=== PATIENT | male | born 1950 | race Caucasian/White ===

== ENCOUNTER 2017-09-01 15:47 | Emergency (ER) | payer OTHER ==
[2017-09-01] MEDS: NAPROXEN 500 MG TABLET PO (17:32)
[2017-09-01] MEDS: HYDROcodone/APAP 5/325MG 1 TAB TABLET PO (17:32)
== END 2017-09-01 18:40 | disposition home or self-care (01) ==
LOC: ER 18:40
DX: M25.562 Pain in left knee (principal); Z79.1 Long term (current) use of non-steroidal anti-inflammatories (NSAID); Z79.891 Long term (current) use of opiate analgesic
CPT/HCPCS: 73564; 99284

== ENCOUNTER → 2018-07-20 | Outpatient (CLI) | payer SELFPAY ==
[2017-09-01 18:37] VITALS: BP 157/86
[~2018-07-20] MED LIST: ATOR40TA59 PO; DICL50TA4 PO; GEMF600T8 PO; GUAN1TAB PO; HYDR-2765 PO; HYDR-3164 PO; MELO15TA23 PO; METO-269 PO; MULT1TAB52 PO; NAPR250T6 PO
--- NOTE | 2018-07-20 09:38 | RAD ---
KUB, 07/20/2018: HISTORY: Kidney stone The abdominal gas pattern is unremarkable. There is no evidence organomegaly. There are at least 2 radiopacities overlying the left kidney suggesting intrarenal calculi. The largest of these is projected over the region of the renal pelvis and measures 1.4 cm. This corresponds in size and location to a calculus seen on the 02/05/2016 CT study. No definite radiopacity seen along the course of either ureter. Moderate multilevel hypertrophic degenerative changes are present in the spine. IMPRESSION: 1. Left intrarenal calculi. 2. No acute abdominal abnormality is detected. Electronically signed by: Justin Thornton MD (07/20/2018 9:35 AM) [facility]
== END | disposition home or self-care (01) ==
LOC: RAD 08:46
PROVIDERS: ATTEND Urology
DX: N20.0 Calculus of kidney (principal); M89.38 Hypertrophy of bone, other site; M47.819 Spondylosis without myelopathy or radiculopathy, site unspecified
CPT/HCPCS: 74018

== ENCOUNTER 2020-03-13 05:49 | Inpatient (IN) | payer MEDICAID ==
[~2020-03-13] VITALS: Ht 182.9 cm; Wt 113.6 kg
[~2020-03-13 05:49] MED LIST changes: +GEMF600T20 PO; -GEMF600T8 PO; +MORPHINE SULFATE 4 MG/ML VIAL. IV PRN; +MULT-445 PO; -MULT1TAB52 PO; +NAPR-699 PO; -NAPR250T6 PO
[2020-03-13 06:29] LABS: BASO # 0.1 x10^3/uL (0.0-0.2); BASO % 1 % (0-3); EOS # 0.1 x10^3/uL (0.0-0.7); EOS % 2 % (0-3); HEMATOCRIT 47.1 % (39.0-53.0); HEMOGLOBIN 15.8 g/dL (13.0-17.5); LYMPH # 2.3 x10^3/uL (1.0-4.8); LYMPH % 35 % (24-48); MEAN CORPUSCULAR HEMOGLOBIN 30 pg (25-35); MEAN CORPUSCULAR HGB CONC 33 g/dL (31-37); MEAN CORPUSCULAR VOLUME 88 fL (79-100); MONO # 0.5 x10^3/uL (0.0-1.1); MONO % 7 % (0-9); NEUT # 3.6 x10^3/uL (1.8-7.7); NEUT % 55 % (31-73); PLATELET COUNT 309 x10^3/uL (140-400); RED BLOOD COUNT 5.35 x10^6/uL (4.30-5.70); WHITE BLOOD COUNT 6.5 x10^3/uL (4.0-11.0)
[2020-03-13 06:39] LABS: ALBUMIN 3.8 g/dL (3.4-5.0); ALBUMIN/GLOBULIN RATIO 1.1 (1.0-1.7); CALCIUM 8.9 mg/dL (8.5-10.1); CREATININE 1.2 mg/dL (0.7-1.3); GFR 60.4; MAGNESIUM 2.2 mg/dL (1.8-2.4); POTASSIUM 3.7 mmol/L (3.5-5.1); TOTAL BILIRUBIN 0.7 mg/dL (0.2-1.0); TOTAL PROTEIN 7.4 g/dL (6.4-8.2)
--- NOTE | 2020-03-13 06:58 | RAD ---
EXAM: AP View of the chest DATE: 03/13/2020 6:29 AM INDICATION: Reason: cp / Spl. Instructions: / History: COMPARISON: No Prior FINDINGS: The heart is not enlarged. Mediastinal and hilar contours are normal. No focal parenchymal airspace opacity. No pleural effusion or pneumothorax. Shoulder joint degenerative changes are seen IMPRESSION: 1. No radiographic evidence for acute cardiopulmonary process. Electronically signed by: Bernabe Washington MD (03/13/2020 6:47 AM) [facility]
--- NOTE | 2020-03-13 07:02 | PHYS DOC ---
Past Medical History Past Medical History: Hypertension Past Surgical History: Appendectomy, Tonsillectomy, Other Additional Past Surgical Histo: back, knee, shoulder Smoking Status: Current Every Day Smoker Alcohol Use: Occasionally Drug Use: None General Adult EDM: Chief Complaint: CHEST PAIN HPI: HPI: 69-year-old male past medical history significant for hypertension, hyp erlipidemia, nephrolithiasis, osteoarthritis and tobacco dependence, presents the ED with complaints of constant, right sided "chest pressure," that radiates to left side of his chest that started day afternoon and resolved yesterday with associated shortness of breath. 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 Has no routine primary care physician. He is to follow-up with Dr. Bauer. Has been noncompliant with his metoprolol and cholesterol medicine for years. Father with a history of multiple heart attacks. Has never had any cardiology evaluation, stress test or echocardiogram. Tested negative for Covid approximately 8 months ago. Denies any alcohol cocaine abuse. EMR was reviewed and patient is CT abdomen pelvis 2015 that showed coronary artery calcifications. Patient with no family history of sudden under the age of 50, cardiac arrhythmias, coagulopathy, connective tissue disorder, aortic aneurysm or dissection. Review of Systems: Review of Systems: Constitutional: Denies fever or chills. [] Eyes: Denies change in visual acuity. [] HENT: Denies nasal congestion or sore throat. [] Respiratory: Denies cough or hemoptysis Cardiovascular: Denies syncope or palpitations GI: Denies abdominal pain, nausea, vomiting, bloody stools or diarrhea. [] : Denies dysuria or hematuria Musculoskeletal: Denies back pain or joint pain or lower extremity swelling Integument: Denies rash or diaphoresis Neurologic: Denies headache, neck stiffness focal weakness or sensory changes. [] Endocrine: Denies polyuria or polydipsia. [] Lymphatic: Denies swollen glands. [] Psychiatric: Denies depression or anxiety. [] Heart Score: HEART Score for Chest Pain: HEART Score for Chest Pain Response (Comments) Value History Slighlty/Non-Suspicious 0 ECG Normal 0 Age > 65 2 Risk Factors >3 Risk Factors or Hx CAD 2 Troponin < Normal Limit 0 Total 4 Risk Factors: Risk Factors: DM, Current or recent (<one month) smoker, HTN, HLP, family history of CAD, obesity. Risk Scores: Score 0 - 3: 2.5% MACE over next 6 weeks - Discharge Home Score 4 - 6: 20.3% MACE over next 6 weeks - Admit for Clinical Observation Score 7 - 10: 72.7% MACE over next 6 weeks - Early Invasive Strategies Allergies: Allergies: Allergies Coded Allergies Type Severity Reaction Last Updated Verified No Known Drug Allergies 02/08/16 No Physical Exam: PE: Constitutional: Well developed, well nourished, no acute distress, non-toxic appearance, HENT: Normocephalic, atraumatic, Eyes: EOMI, conjunctiva normal, no discharge. Neck: Normal range of motion, supple, Cardiovascular: S1/2 present, regular rhythm Lungs & Thorax: Speaking in full sentences but does appear slighlty winded, bilateral equal chest rise, no tachypnea or increased work of breathing, lungs clear w/no wheezing/rales/crackles Abdomen: soft, no tenderness, Skin: Warm, dry, no erythema, no rash. [] Back: No tenderness, no CVA tenderness. [] Extremities: No tenderness, no cyanosis, no unilateral LE edema Neurologic: Alert and oriented X 3, normal motor function, normal sensory function, no focal deficits noted. [] Psychologic: Affect normal, judgement normal, mood normal. [] Current Patient Data: Labs: Laboratory Tests Test 03/13/20 06:00 White Blood Count 6.5 x10^3/uL (4.0-11.0) Red Blood Count 5.35 x10^6/uL (4.30-5.70) Hemoglobin 15.8 g/dL (13.0-17.5) Hematocrit 47.1 % (39.0-53.0) Mean Corpuscular Volume 88 fL (79-100) Mean Corpuscular Hemoglobin 30 pg (25-35) Mean Corpuscular Hemoglobin Concent 33 g/dL (31-37) Red Cell Distribution Width 14.0 % (11.5-14.5) Platelet Count 309 x10^3/uL (140-400) Neutrophils (%) (Auto) 55 % (31-73) Lymphocytes (%) (Auto) 35 % (24-48) Monocytes (%) (Auto) 7 % (0-9) Eosinophils (%) (Auto) 2 % (0-3) Basophils (%) (Auto) 1 % (0-3) Neutrophils # (Auto) 3.6 x10^3/uL (1.8-7.7) Lymphocytes # (Auto) 2.3 x10^3/uL (1.0-4.8) Monocytes # (Auto) 0.5 x10^3/uL (0.0-1.1) Eosinophils # (Auto) 0.1 x10^3/uL (0.0-0.7) Basophils # (Auto) 0.1 x10^3/uL (0.0-0.2) Sodium Level 144 mmol/L (136-145) Potassium Level 3.7 mmol/L (3.5-5.1) Chloride Level 106 mmol/L (98-107) Carbon Dioxide Level 31 mmol/L (21-32) Anion Gap 7 (6-14) Blood Urea Nitrogen 15 mg/dL (8-26) Creatinine 1.2 mg/dL (0.7-1.3) Estimated GFR (Cockcroft-Gault) 60.4 BUN/Creatinine Ratio 13 (6-20) Glucose Level 96 mg/dL (70-99) Calcium Level 8.9 mg/dL (8.5-10.1) Magnesium Level 2.2 mg/dL (1.8-2.4) Total Bilirubin 0.7 mg/dL (0.2-1.0) Aspartate Amino Transferase (AST) 25 U/L (15-37) Alanine Aminotransferase (ALT) 48 U/L (16-63) Alkaline Phosphatase 77 U/L (46-116) Troponin I Quantitative 0.042 ng/mL (0.000-0.055) YX-Psu-M-Type Natriuretic Peptide 350 pg/mL (0-124) H Total Protein 7.4 g/dL (6.4-8.2) Albumin 3.8 g/dL (3.4-5.0) Albumin/Globulin Ratio 1.1 (1.0-1.7) Lipase 101 U/L (73-393) Laboratory Tests 03/13/20 06:00 Laboratory Tests 03/13/20 06:00 Vital Signs: Vital Signs Date Time Temp Pulse Resp B/P (MAP) Pulse Ox O2 Delivery O2 Flow Rate FiO2 03/13/20 06:22 59 160/78 (105) 93 Room Air 03/13/20 05:55 97.8 18 97.8 EKG: EKG: Sinus rhythm at 63 bpm, left axis deviation, normal intervals, T wave inversion lead III, U wave on chest leads, no ST elevations or ST depressions Radiology/Procedures: Radiology/Procedures: IMAGING REPORT Signed PATIENT: ZEFERINO WINCHESTER ACCOUNT: [id number] : 1950 LOCATION: ER AGE: 69 SEX: M EXAM STATUS: REG ER ORD. PHYSICIAN: FIORDALIZA MIN DO REASON: cp PROCEDURE: PORTABLE CHEST 1V EXAM: AP View of the chest DATE: 03/13/2020 6:29 AM INDICATION: Reason: cp / Spl. Instructions: / History: COMPARISON: No Prior FINDINGS: The heart is not enlarged. Mediastinal and hilar contours are normal. No focal parenchymal airspace opacity. No pleural effusion or pneumothorax. Shoulder joint degenerative changes are seen IMPRESSION: 1. No radiographic evidence for acute cardiopulmonary process. Electronically signed by: Bernabe Villalobos MD (03/13/2020 6:47 AM) [facility] DICTATED and SIGNED BY: BERNABE VILLALOBOS MD DATE: 03/13/20 [id number] 0 Course & Med Decision Making: Course & Med Decision Making Pertinent Labs and Imaging studies reviewed. (See chart for details) Concern for moderate risk chest pain, troponin 0.042, bnp elevated. D-dimer wnl. Normal cxr. BP elevated. Given RFs/heart score 4, will admit for further medical management and cardiology consultation. Patient stable at time of admission and agrees with this plan. I have spoken with the patient and/or caregivers. I have explained the patient's condition, diagnosis and treatment plan based on the information available to me at this time. I have answered the patient's and/or caregivers questions and answered any concerns. The patient and/or caregivers have as good an understanding of the patient's diagnosis, condition and treatment plan as can be expected at this point. The patient has been stabilized within the capability of the emergency department. The patient will be transported for further care and management or will be moved to an observation or inpatient service. I have communicated with the staff or medical practitioner taking over this patient's care. Dragon Disclaimer: Dragon Disclaimer: This electronic medical record was generated, in whole or in part, using a voice recognition dictation system. Departure Departure Impression: Primary Impression: Pressure in chest Additional Impression: Dyspnea Disposition: 09 ADMITTED INPT THIS HOSP Admitting Physician: JUSTEN (Dr. Roberts) Condition: STABLE Referrals: NO PCP (PCP) FIORDALIZA MIN DO Mar 13, 2020 07:02
[2020-03-13] MEDS ORDERED: ONDANSETRON PF 4 MG/2 ML VIAL. IV PRN (08:15)
[2020-03-13] MEDS ORDERED: ACETAMINOPHEN 325 MG TABLET. PO PRN (08:15)
--- NOTE | 2020-03-13 09:40 | PDOC1 ---
History and Physical Date of Service: DOS: DATE: 03/13/20 TIME: 09:38 Chief Complaint: Chief Complain: chest pain History of Present Illness: HPI: 69-year-old male past medical history significant for hypertension, hyperlipidemia, nephrolithiasis, osteoarthritis and tobacco dependence, presents the ED with complaints of constant, right sided "chest pressure," that radiates to left side of his chest that started day afternoon and resolved yesterday with associated shortness of breath. 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 Has no routine primary care physician. He is to follow-up with Dr. Bauer. Has been noncompliant with his metoprolol and cholesterol medicine for years. Father with a history of multiple heart attacks. Has never had any cardiology evaluation, stress test or echocardiogram. Tested negative for Covid approximately 8 months ago. Denies any alcohol cocaine abuse. EMR was reviewed and patient is CT abdomen pelvis 2015 that showed coronary artery calcifications. Patient with no family history of sudden under the age of 50, cardiac arrhythmias, coagulopathy, connective tissue disorder, aortic aneurysm or dissection. Concern for moderate risk chest pain, troponin 0.042, bnp elevated. D-dimer wnl. Normal cxr. BP elevated. Given RFs/heart score 4, will admit for further medical management and cardiology consultation. Patient stable at time of admission and agrees with this plan. Past Medical/Surgical History: PMH/PSH: Past Medical History: Hypertension Past Surgical History: Appendectomy, Tonsillectomy, back, knee, shoulder Allergies: Allergies: Coded Allergies: No Known Drug Allergies (Unverified , 02/08/16) Family History: Family History: Reviewed with no relevant findings Social History: Social History: Smoking Status: Current Every Day Smoker Alcohol Use: Occasionally Drug Use: None Current Medications: Current Medications Current Medications Ondansetron HCl (Zofran) 4 mg PRN Q8HRS PRN IV NAUSEA/VOMITING; Start 03/13/20 at 08:15; Stop 03/14/20 at 08:14 Acetaminophen (Tylenol) 650 mg PRN Q4HRS PRN PO FEVER > 100.3'F; Start 03/13/20 at 08:15; Stop 03/14/20 at 08:14 Active Scripts Active Tutor Key 5-325 Tablet (Acetaminophen/Hydrocodone Bitart) 1 Each Tablet 1 Tab PO Q4- 6HRS PRN Diclofenac Sodium 50 Mg Tablet.dr 1 Tab PO BID Reported Multivitamins (Multivitamin) 1 Each Tablet 1 Tab PO DAILY Meloxicam 15 Mg Tablet 1 Tab PO DAILY Atorvastatin Calcium 40 Mg Tablet 1 Tab PO QHS Gemfibrozil 600 Mg Tablet 600 Mg PO BID Toprol Xl (Metoprolol Succinate) 50 Mg Tab.er.24h 50 Mg PO BID Guanfacine Hcl 1 Mg Tablet 1 Mg PO DAILY Hydrocodone-Apap 7.5-325 (Hydrocodone Bit/Acetaminophen) 1 Each Tablet 1 Each PO DAILY ROS: Review of Systems Review of System REVIEW OF SYSTEMS: GENERAL: Denies weakness SKIN: No bruising, hair changes or rashes. EYES: No blurred, double or loss of vision. NOSE AND THROAT: No history of nosebleeds, hoarseness or sore throat. HEART: No history of palpitations, chest pain or shortness of breath on exertion. LUNGS: Denies cough, hemoptysis, wheezing or shortness of breath. GASTROINTESTINAL: Denies changes in appetite, nausea, vomiting, diarrhea or constipation. GENITOURINARY: No history of frequency, urgency, hesitancy or nocturia. NEUROLOGIC: Denies history of numbness, tingling, or tremor. PSYCHIATRIC: No history of panic, anxiety or depression. ENDOCRINE: No history of heat or cold intolerance, polyuria or polydipsia. EXTREMITIES: Denies joint pain, pain on walking or stiffness. Physical Exam: Vital Signs: Vital Signs Date Time Temp Pulse Resp B/P (MAP) Pulse Ox O2 Delivery O2 Flow Rate FiO2 03/13/20 06:22 59 160/78 (105) 93 Room Air 03/13/20 05:55 97.8 18 97.8 Physcial Exam: GEN: No apparent distress. Alert and oriented HEENT: Normal cephalic, atraumatic, external auditory canals are patent EYES: Extraocular muscles are intact, pupil are equally round and reactive to light and accommodation MUSCULOSKELETAL: Well developed , well nourished, good range of motion ENDOCRINE: No thyromegaly was palpated LYMPHATICS: No cervical chain or axillary nodes were noted HEMATOPOIETIC: No bruising NECK: Supple, no JVD, no thyromegaly was noted LUNGS: Clear to auscultation in all lung field without rhonchi or wheezing HEART: RRR, S!, S2 present. Peripheral pulses intact, no obvious murmurs noted ABDOMEN: Soft, nontender. Positive bowel sounds, no organomegaly, normal bowel sounds EXTREMITIES: Without clubbing, cyanosis, or edema. Pedal pulses intact. Negative Homans sign NEUROLOGIC: Normal speech and tone. A&O x 3, moves all extremities, no obvious focal deficits PSYCHIATRIC: Normal affect, normal mood. Stable SKIN: No ulcerations or rashes, good skin turgor, no jaundice VASCULAR: Good capillary refill, neurovascular bundle appears to be intact Labs: Labs: Laboratory Tests Test 03/13/20 06:00 White Blood Count 6.5 x10^3/uL (4.0-11.0) Red Blood Count 5.35 x10^6/uL (4.30-5.70) Hemoglobin 15.8 g/dL (13.0-17.5) Hematocrit 47.1 % (39.0-53.0) Mean Corpuscular Volume 88 fL (79-100) Mean Corpuscular Hemoglobin 30 pg (25-35) Mean Corpuscular Hemoglobin Concent 33 g/dL (31-37) Red Cell Distribution Width 14.0 % (11.5-14.5) Platelet Count 309 x10^3/uL (140-400) Neutrophils (%) (Auto) 55 % (31-73) Lymphocytes (%) (Auto) 35 % (24-48) Monocytes (%) (Auto) 7 % (0-9) Eosinophils (%) (Auto) 2 % (0-3) Basophils (%) (Auto) 1 % (0-3) Neutrophils # (Auto) 3.6 x10^3/uL (1.8-7.7) Lymphocytes # (Auto) 2.3 x10^3/uL (1.0-4.8) Monocytes # (Auto) 0.5 x10^3/uL (0.0-1.1) Eosinophils # (Auto) 0.1 x10^3/uL (0.0-0.7) Basophils # (Auto) 0.1 x10^3/uL (0.0-0.2) D-Dimer (Elva) 0.33 ug/mlFEU (0.00-0.50) Sodium Level 144 mmol/L (136-145) Potassium Level 3.7 mmol/L (3.5-5.1) Chloride Level 106 mmol/L (98-107) Carbon Dioxide Level 31 mmol/L (21-32) Anion Gap 7 (6-14) Blood Urea Nitrogen 15 mg/dL (8-26) Creatinine 1.2 mg/dL (0.7-1.3) Estimated GFR (Cockcroft-Gault) 60.4 BUN/Creatinine Ratio 13 (6-20) Glucose Level 96 mg/dL (70-99) Calcium Level 8.9 mg/dL (8.5-10.1) Magnesium Level 2.2 mg/dL (1.8-2.4) Total Bilirubin 0.7 mg/dL (0.2-1.0) Aspartate Amino Transf (AST/SGOT) 25 U/L (15-37) Alanine Aminotransferase (ALT/SGPT) 48 U/L (16-63) Alkaline Phosphatase 77 U/L (46-116) Troponin I Quantitative 0.042 ng/mL (0.000-0.055) PC-Rlc-B-Type Natriuretic Peptide 350 pg/mL (0-124) Total Protein 7.4 g/dL (6.4-8.2) Albumin 3.8 g/dL (3.4-5.0) Albumin/Globulin Ratio 1.1 (1.0-1.7) Lipase 101 U/L (73-393) Laboratory Tests Test 03/13/20 06:00 White Blood Count 6.5 x10^3/uL (4.0-11.0) Red Blood Count 5.35 x10^6/uL (4.30-5.70) Hemoglobin 15.8 g/dL (13.0-17.5) Hematocrit 47.1 % (39.0-53.0) Mean Corpuscular Volume 88 fL (79-100) Mean Corpuscular Hemoglobin 30 pg (25-35) Mean Corpuscular Hemoglobin Concent 33 g/dL (31-37) Red Cell Distribution Width 14.0 % (11.5-14.5) Platelet Count 309 x10^3/uL (140-400) Neutrophils (%) (Auto) 55 % (31-73) Lymphocytes (%) (Auto) 35 % (24-48) Monocytes (%) (Auto) 7 % (0-9) Eosinophils (%) (Auto) 2 % (0-3) Basophils (%) (Auto) 1 % (0-3) Neutrophils # (Auto) 3.6 x10^3/uL (1.8-7.7) Lymphocytes # (Auto) 2.3 x10^3/uL (1.0-4.8) Monocytes # (Auto) 0.5 x10^3/uL (0.0-1.1) Eosinophils # (Auto) 0.1 x10^3/uL (0.0-0.7) Basophils # (Auto) 0.1 x10^3/uL (0.0-0.2) D-Dimer (Elva) 0.33 ug/mlFEU (0.00-0.50) Sodium Level 144 mmol/L (136-145) Potassium Level 3.7 mmol/L (3.5-5.1) Chloride Level 106 mmol/L (98-107) Carbon Dioxide Level 31 mmol/L (21-32) Anion Gap 7 (6-14) Blood Urea Nitrogen 15 mg/dL (8-26) Creatinine 1.2 mg/dL (0.7-1.3) Estimated GFR (Cockcroft-Gault) 60.4 BUN/Creatinine Ratio 13 (6-20) Glucose Level 96 mg/dL (70-99) Calcium Level 8.9 mg/dL (8.5-10.1) Magnesium Level 2.2 mg/dL (1.8-2.4) Total Bilirubin 0.7 mg/dL (0.2-1.0) Aspartate Amino Transf (AST/SGOT) 25 U/L (15-37) Alanine Aminotransferase (ALT/SGPT) 48 U/L (16-63) Alkaline Phosphatase 77 U/L (46-116) Troponin I Quantitative 0.042 ng/mL (0.000-0.055) WT-Nfv-V-Type Natriuretic Peptide 350 pg/mL (0-124) Total Protein 7.4 g/dL (6.4-8.2) Albumin 3.8 g/dL (3.4-5.0) Albumin/Globulin Ratio 1.1 (1.0-1.7) Lipase 101 U/L (73-393) Images: Images IMPRESSION: 1. No radiographic evidence for acute cardiopulmonary process. Assessment/Plan Assessment/Plan Acute chest pain concerning for unstable angina/NSTEMI Heart score 4 EKG normal Troponin 0.043 and trending Continue aspirin, consider Plavix if intermediate risk will defer this to cardiology Cardiology consulted for predischarge stress testing or left heart cath Continue nitroglycerin as needed for pain Continue beta-diana if blood pressures allow Continue high intensity statins IV morphine as needed Maintain O2 sats between 88 to 95% Trend troponins Repeat EKG in the a.m. Continue telemetry monitoring Monitor for electrolyte abnormalities Avoid NSAIDs Lovenox for DVT prophylaxis Protonix GI prophylaxis ADA diet Full code Discussed with RN and SW Disposition pending full cardiac evaluation Surrogate decision maker is Bhakti Jolley Justifications for Admission Other Justification BARRON HUMPHREYS MD Mar 13, 2020 09:40
[2020-03-13] MEDS ORDERED: SENNOSIDES 8.6 MG TABLET PO PRN (09:45)
[2020-03-13] MEDS ORDERED: ONDANSETRON PF 4 MG/2 ML VIAL. IVP PRN (09:45)
[2020-03-13] MEDS ORDERED: NITROGLYCERIN SUBLINGUAL 0.4 MG BOTTLE OF 25. SL PRN (09:45)
[2020-03-13] MEDS ORDERED: MORPHINE SULFATE 2 MG/ML VIAL. IV PRN (09:45)
[2020-03-13] MEDS ORDERED: DEXTROSE 50% 25 GM / 50ML DISP.SYRIN. IV PRN (09:45)
[2020-03-13] MEDS ORDERED: DOCUSATE SODIUM 100 MG CAPSULE. PO PRN (09:45)
[2020-03-13 12:00] VITALS: BP 163/76
[2020-03-13] MEDS ORDERED: ASPIRIN ENTERIC COATED 325 MG TABLET.DR. PO ONE (12:09)
--- NOTE | 2020-03-13 12:25 | NUR ---
The patient, ZEFERINO WINCHESTER, 69 y/o, M admitted by BARRON HUMPHREYS MD, was given written information regarding hospital policies, unit procedures and contact persons. Valuables checked. Patient arrived to room 207 via wheelchair with transportation. Ambulated to bed. No complaints of shortness of breath or chest pain at this time. VSS. Tele monitor applied, SR with HR of 60. Call light within reach. Will continue to monitor.
--- NOTE | 2020-03-13 13:13 | PDOC2 ---
VIANEY GRANT ASSEMBLER BONDING 03/13/20 1313: CARDIAC CONSULT DATE OF CONSULT Date of Consult DATE: 03/13/20 TIME: 13:03 REASON FOR CONSULT Reason for Consult: Chest pain REFERRING PHYSICIAN Referring Physician: Dr. Ha SOURCE Source: Chart review, Patient HISTORY OF PRESENT ILLNESS HISTORY OF PRESENT ILLNESS This is a 69 yo male who presented secondary to chest pain, pressure. Patient reports pain began this past Friday. Located in his left chest. Describes as throbbing pain. Has been constant. Radiated down his left arm. Left chest is tender upon palpitation. No associated dizziness, diaphoresis, palpitations, shortness of breath, or nausea/vomiting. No prior h/o CAD, CHF. Does not have tree killer or PCP. PAST MEDICAL HISTORY Cardiovascular: HTN, Hyperlipidemia Musculoskeletal: Osteoarthritis PAST SURGICAL HISTORY Past Surgical History: Appendectomy, Hernia Repair, Tonsillectomy FAMILY HISTORY Family History: Diabetes, Heart Disease SOCIAL HISTORY Smoke: 1 pack per day ALCOHOL: none Drugs: None Lives: Alone CURRENT MEDICATIONS CURRENT MEDICATIONS Current Medications Medications (Trade) Dose Ordered Sig/Haylie Route PRN Reason Start Time Stop Time Status Last Admin Dose Admin Morphine Sulfate (Morphine Sulfate) 1 mg PRN Q1HR PRN IV PAIN 03/13/20 09:45 03/13/20 12:14 ALLERGIES ALLERGIES: Coded Allergies: No Known Drug Allergies (Unverified , 02/08/16) ROS Review of System 14 point ROS conducted with pertinent positives noted above in HPI PHYSICAL EXAM General: Alert, Oriented X3, Cooperative, No acute distress HEENT: Atraumatic, Mucous membr. moist/pink Lungs: Clear to auscultation Heart: Regular rate Abdomen: Soft, No tenderness, Other (obese) Extremities: No edema, Normal pulses Neuro: Normal speech, Sensation intact Psych/Mental Status: Mental status NL, Mood NL MUSCULOSKELETAL: Osteoarthritic changes both hands VITALS/I&O VITALS/I&O: Vital Signs Date Time Temp Pulse Resp B/P (MAP) Pulse Ox O2 Delivery O2 Flow Rate FiO2 03/13/20 12:14 18 03/13/20 12:07 56 165/74 (104) 97 Room Air 03/13/20 05:55 97.8 97.8 LABS Lab: Laboratory Tests Test 03/13/20 06:00 03/13/20 09:17 White Blood Count 6.5 x10^3/uL (4.0-11.0) Red Blood Count 5.35 x10^6/uL (4.30-5.70) Hemoglobin 15.8 g/dL (13.0-17.5) Hematocrit 47.1 % (39.0-53.0) Mean Corpuscular Volume 88 fL (79-100) Mean Corpuscular Hemoglobin 30 pg (25-35) Mean Corpuscular Hemoglobin Concent 33 g/dL (31-37) Red Cell Distribution Width 14.0 % (11.5-14.5) Platelet Count 309 x10^3/uL (140-400) Neutrophils (%) (Auto) 55 % (31-73) Lymphocytes (%) (Auto) 35 % (24-48) Monocytes (%) (Auto) 7 % (0-9) Eosinophils (%) (Auto) 2 % (0-3) Basophils (%) (Auto) 1 % (0-3) Neutrophils # (Auto) 3.6 x10^3/uL (1.8-7.7) Lymphocytes # (Auto) 2.3 x10^3/uL (1.0-4.8) Monocytes # (Auto) 0.5 x10^3/uL (0.0-1.1) Eosinophils # (Auto) 0.1 x10^3/uL (0.0-0.7) Basophils # (Auto) 0.1 x10^3/uL (0.0-0.2) D-Dimer (Elva) 0.33 ug/mlFEU (0.00-0.50) Sodium Level 144 mmol/L (136-145) Potassium Level 3.7 mmol/L (3.5-5.1) Chloride Level 106 mmol/L (98-107) Carbon Dioxide Level 31 mmol/L (21-32) Anion Gap 7 (6-14) Blood Urea Nitrogen 15 mg/dL (8-26) Creatinine 1.2 mg/dL (0.7-1.3) Estimated GFR (Cockcroft-Gault) 60.4 BUN/Creatinine Ratio 13 (6-20) Glucose Level 96 mg/dL (70-99) Calcium Level 8.9 mg/dL (8.5-10.1) Magnesium Level 2.2 mg/dL (1.8-2.4) Total Bilirubin 0.7 mg/dL (0.2-1.0) Aspartate Amino Transferase (AST) 25 U/L (15-37) Alanine Aminotransferase (ALT) 48 U/L (16-63) Alkaline Phosphatase 77 U/L (46-116) Troponin I Quantitative 0.042 ng/mL (0.000-0.055) 0.040 ng/mL (0.000-0.055) ZI-Ibi-Y-Type Natriuretic Peptide 350 pg/mL (0-124) H Total Protein 7.4 g/dL (6.4-8.2) Albumin 3.8 g/dL (3.4-5.0) Albumin/Globulin Ratio 1.1 (1.0-1.7) Lipase 101 U/L (73-393) Laboratory Tests 03/13/20 06:00 Laboratory Tests 03/13/20 06:00 ASSESSMENT/PLAN ASSESSMENT/PLAN 1. Chest pain, mixed features. Initial trop 0.04 2. Accelerated hypertension 3. Hyperlipidemia 4. Tobaccosim 5. Obesity Recommendations ASA Add lisinopril for BP control Lipids. Add statin as warranted Trend trop Echo to assess LV systolic function Will need further ischemic evaluation given risk factors. Possibly on an outpatient basis Discussed/encouraged smoking cessation Further pending above. RHONA RAMSEY MD 03/13/20 1724: CARDIAC CONSULT ASSESSMENT/PLAN ASSESSMENT/PLAN Patient seen and examined. Agree with REGIONAL OPERATIONS DIRECTOR's assessment and plan. Chest pain with atypical features, reproducible to palpation and most probably musculoskeletal. Myocardial infarction has been ruled out. Blood pressure better controlled since admission. 2D echo showed LVEF 40%. Plan ischemic evaluation as an outpatient. Thank you very much VIANEY GRANT APRN Mar 13, 2020 13:13 RHONA RAMSEY MD Mar 13, 2020 17:24
[2020-03-13 13:53] LABS: CHOLESTEROL/HDL RATIO 6.7
[2020-03-13 15:00] VITALS: BP 137/68
--- NOTE | 2020-03-13 17:18 | CARD ---
MR#: [id number] Date of Study: 03/13/2020 Ordering Physician: VIANEY GRANT, Referring Physician: VIANEY GRANT, Tech: Telma Allison APPROVED REPORT EXAM: Two-dimensional and M-mode echocardiogram with Doppler and color Doppler. Other Information Quality : FairHR: 60bpm INDICATION Chest Pain RISK FACTORS Hypertension Hyperlipidemia Smoking 2D DIMENSIONS RVDd4.0 (2.9-3.5cm)Left Atrium(2D)4.5 (1.6-4.0cm) IVSd1.3 (0.7-1.1cm)Aortic Root(2D)3.8 (2.0-3.7cm) LVDd6.1 (3.9-5.9cm)LVOT Diameter2.1 (1.8-2.4cm) PWd1.5 (0.7-1.1cm)LVDs4.3 (2.5-4.0cm) FS (%) 30.6 %SV108.6 ml LVEF(%)57.2 (>50%) Aortic Valve AoV Peak Benson.142.9cm/sAoV VTI30.3cm AO Peak GR.8.2mmHgLVOT Peak Benson.85.8cm/s AO Mean GR.5mmHgAVA (VMAX)2.07cm2 AI P 1/2 Tspb434ja Mitral Valve MV E Znpgdxpb65.8cm/sMV DECEL PPHX530gv MV A Aeotprsx71.8cm/sE/A Ratio0.7 Pulmonary Valve PV Peak Hxpcqoak70.5cm/s Tricuspid Valve TR P. Unjmhnmr638pl/sRAP AGYTAHMA7gyEr TR Peak Gr.75qlXhDYFG27svPm Pulmonary Vein S1 Bldbgbrz20.5cm/sD2 Fcakxzij10.8cm/s PVa lkpgzzpk847bpmz LEFT VENTRICLE The Left Ventricle is mildly dilated. There is moderate concentric left ventricular hypertrophy. The left ventricular systolic function is moderately decreased. EF 40% There is mild to moderate global h ypokinesis. Transmitral Doppler flow pattern is Grade I-abnormal relaxation pattern. RIGHT VENTRICLE The right ventricle is borderline dilated. There is normal right ventricular wall thickness. The righ t ventricular systolic function is normal. ATRIA The left atrium size is normal. The right atrium is mildly dilated. The interatrial septum is intact with no evidence for an atrial septal defect or patent foramen ovale as noted on 2-D or Doppler imagi ng. AORTIC VALVE The aortic valve is thickened but opens well. Doppler and Color Flow revealed trace aortic regurgitat ion. There is no significant aortic valvular stenosis. Calculated aortic valve area is 2.2 cm2 with m aximum pressure gradient of 8 mmHg and mean pressure gradient of 4 mmHg. MITRAL VALVE The mitral valve is normal in structure and function. There is no evidence of mitral valve prolapse. There is no mitral valve stenosis. Doppler and Color-flow revealed trace mitral regurgitation. TRICUSPID VALVE The tricuspid valve is normal in structure and function. Doppler and Color Flow revealed trace tricus pid regurgitation with an estimated PAP of 33 mmHg. There is no tricuspid valve stenosis. PULMONIC VALVE The pulmonic valve is not well visualized. Doppler and Color Flow revealed trace pulmonic valvular re gurgitation. There is no pulmonic valvular stenosis. GREAT VESSELS The aortic root is normal in size. The IVC is normal in size and collapses >50% with inspiration. PERICARDIAL EFFUSION There is no evidence of significant pericardial effusion. Critical Notification Critical Value: No <Conclusion> The left ventricular systolic function is moderately decreased. EF 40% There is mild to moderate global hypokinesis. Signed by : Baltazar Pickering, Electronically Approved : 03/13/2020 17:18:17
[2020-03-13 19:00] VITALS: BP 145/69
[2020-03-13] MEDS ORDERED: ENOXAPARIN 40 MG/0.4 ML SYRINGE. SQ SCH (21:00)
[2020-03-13] MEDS ORDERED: ATORVASTATIN CALCIUM 40 MG TABLET. PO SCH (21:00)
[2020-03-13 22:51] VITALS: BP 152/77
[2020-03-14 03:05] VITALS: BP 160/74
[2020-03-14 07:00] VITALS: BP 138/117
[2020-03-14 07:38] LABS: BASO % 1 % (0-3); EOS # 0.1 x10^3/uL (0.0-0.7); EOS % 2 % (0-3); HEMATOCRIT 44.9 % (39.0-53.0); HEMOGLOBIN 14.9 g/dL (13.0-17.5); LYMPH # 1.7 x10^3/uL (1.0-4.8); LYMPH % 30 % (24-48); MEAN CORPUSCULAR HEMOGLOBIN 29 pg (25-35); MEAN CORPUSCULAR HGB CONC 33 g/dL (31-37); MEAN CORPUSCULAR VOLUME 88 fL (79-100); MONO # 0.5 x10^3/uL (0.0-1.1); MONO % 9 % (0-9); NEUT # 3.3 x10^3/uL (1.8-7.7); NEUT % 59 % (31-73); PLATELET COUNT 275 x10^3/uL (140-400); RED CELL DISTRIBUTION WIDTH 13.9 % (11.5-14.5); WHITE BLOOD COUNT 5.6 x10^3/uL (4.0-11.0)
[2020-03-14 07:59] LABS: CALCIUM 8.5 mg/dL (8.5-10.1); CREATININE 1.1 mg/dL (0.7-1.3); GFR 66.8; MAGNESIUM 2.2 mg/dL (1.8-2.4); PHOSPHORUS 3.2 mg/dL (2.6-4.7); POTASSIUM 3.9 mmol/L (3.5-5.1)
[2020-03-14] MEDS ORDERED: ASPIRIN ENTERIC COATED 81 MG TABLET.DR. PO SCH (08:00)
[2020-03-14] MEDS ORDERED: LISINOPRIL 10 MG TABLET PO SCH (09:00)
[2020-03-14] MEDS ORDERED: ASPI-886 PO (10:22)
[2020-03-14] MEDS ORDERED: ATOR40TA59 PO (10:22)
[2020-03-14] MEDS ORDERED: LISI10TA16 PO (10:22)
--- NOTE | 2020-03-14 10:23 | PDOC ---
[facility] PROGRESS NOTE Date of Service DOS: DATE: 03/14/20 TIME: 10:22 Chief Complaint Chief Complaint Chest pain with slightly elevated troponin Tobacco Overweight History of Present Illness History of Present Illness 03/14/2020 Patient seen and examined Discussed with case management Plan is to discharge later today I wrote and transmitted prescriptions on the computer Vitals/I&O Vitals/I&O: Vital Signs Date Time Temp Pulse Resp B/P (MAP) Pulse Ox O2 Delivery O2 Flow Rate FiO2 03/14/20 08:41 65 138/117 03/14/20 08:00 Room Air 03/14/20 07:00 97.6 18 96 97.6 I & O 03/13/20 03/13/20 03/14/20 15:00 23:00 07:00 Intake Total 200 ml 940 ml 0 ml Balance 200 ml 940 ml 0 ml Physical Exam General: Alert, Oriented X3, Cooperative, No acute distress Heart: Regular rate Abdomen: Soft, No tenderness, Other (obese) Extremities: No edema, Normal pulses Labs Labs: Laboratory Tests Test 03/13/20 12:50 03/14/20 07:10 03/14/20 07:15 Troponin I Quantitative 0.045 ng/mL (0.000-0.055) Sodium Level 145 mmol/L (136-145) Potassium Level 3.9 mmol/L (3.5-5.1) Chloride Level 108 mmol/L (98-107) Carbon Dioxide Level 29 mmol/L (21-32) Anion Gap 8 (6-14) Blood Urea Nitrogen 19 mg/dL (8-26) Creatinine 1.1 mg/dL (0.7-1.3) Estimated GFR (Cockcroft-Gault) 66.8 Glucose Level 101 mg/dL (70-99) Calcium Level 8.5 mg/dL (8.5-10.1) Phosphorus Level 3.2 mg/dL (2.6-4.7) Magnesium Level 2.2 mg/dL (1.8-2.4) White Blood Count 5.6 x10^3/uL (4.0-11.0) Red Blood Count 5.10 x10^6/uL (4.30-5.70) Hemoglobin 14.9 g/dL (13.0-17.5) Hematocrit 44.9 % (39.0-53.0) Mean Corpuscular Volume 88 fL (79-100) Mean Corpuscular Hemoglobin 29 pg (25-35) Mean Corpuscular Hemoglobin Concent 33 g/dL (31-37) Red Cell Distribution Width 13.9 % (11.5-14.5) Platelet Count 275 x10^3/uL (140-400) Neutrophils (%) (Auto) 59 % (31-73) Lymphocytes (%) (Auto) 30 % (24-48) Monocytes (%) (Auto) 9 % (0-9) Eosinophils (%) (Auto) 2 % (0-3) Basophils (%) (Auto) 1 % (0-3) Neutrophils # (Auto) 3.3 x10^3/uL (1.8-7.7) Lymphocytes # (Auto) 1.7 x10^3/uL (1.0-4.8) Monocytes # (Auto) 0.5 x10^3/uL (0.0-1.1) Eosinophils # (Auto) 0.1 x10^3/uL (0.0-0.7) Basophils # (Auto) 0.0 x10^3/uL (0.0-0.2) Assessment and Plan Assessmemt and Plan Problems Medical Problems: (1) Dyspnea Status: Acute (2) Pressure in chest Status: Acute Discharge Comment Review of Relevant I have reviewed the following items jennifer (where applicable) has been applied. Medications: Current Medications Medications (Trade) Dose Ordered Sig/Haylie Route PRN Reason Start Time Stop Time Status Last Admin Dose Admin Aspirin (Ecotrin) 81 mg DAILYWBKFT PO 03/14/20 08:00 03/14/20 08:41 Enoxaparin Sodium (Lovenox 40mg Syringe) 40 mg Q24H SQ 03/13/20 21:00 03/13/20 20:20 Atorvastatin Calcium (Lipitor) 40 mg QHS PO 03/13/20 21:00 03/13/20 20:20 Lisinopril (Prinivil) 10 mg DAILY PO 03/14/20 09:00 03/14/20 08:41 Justifications for Admission Other Justification chest pain GAURANG BARRERA III DO Mar 14, 2020 10:23
--- NOTE | 2020-03-14 10:35 | DS ---
DATE OF DISCHARGE: 03/14/2020 ADMISSION DIAGNOSES: Chest pain and slightly elevated troponin. DISCHARGE DIAGNOSES: Resolving atypical chest pain, accelerated hypertension, hyperlipidemia, tobaccoism, obesity. CONSULTS: Cardiology. PROCEDURES: None. HOSPITAL COURSE: The patient is a pleasant middle-aged male, who presented with some chest pain and has a slight bump in his troponin to 0.04. He was admitted. We did serial enzymes, serial EKGs. We consulted Cardiology. Today, I saw and examined him, he is at his baseline. We plan to discharge on a statin and lisinopril and he may need further ischemic workup on an outpatient basis. DISPOSITION: Home. ACTIVITY: As tolerated. DIET: Cardiac. MEDICATIONS: Please see the MRAD. TOTAL TIME: 32 minutes. GAURANG BARRERA DO DR: SHANELLE/bessy JOB#: [id number] / [id number]
[2020-03-14 10:36] VITALS: BP 182/85
--- NOTE | 2020-03-14 10:44 | EKG ---
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
--- NOTE | 2020-03-14 11:57 | PDOC ---
CARDIO Progress Notes Date and Time Date of Service 03/14/20 Time of Evaluation 1150 Subjective Subjective: No Chest Pain, No shortness of breath, No Palpitations Vitals Vitals Vital Signs Date Time Temp Pulse Resp B/P (MAP) Pulse Ox O2 Delivery O2 Flow Rate FiO2 03/14/20 10:36 97.8 70 18 182/85 (117) 96 Room Air 97.8 Weight Weight [ ] Input and Output Intake and Output Intake and Output 03/14/20 07:00 Intake Total 1140 ml Balance 1140 ml Intake Oral 1140 ml # Voids 3 Laboratory Labs Laboratory Tests Test 03/13/20 12:50 03/14/20 07:10 03/14/20 07:15 Troponin I Quantitative 0.045 ng/mL (0.000-0.055) Sodium Level 145 mmol/L (136-145) Potassium Level 3.9 mmol/L (3.5-5.1) Chloride Level 108 mmol/L (98-107) Carbon Dioxide Level 29 mmol/L (21-32) Anion Gap 8 (6-14) Blood Urea Nitrogen 19 mg/dL (8-26) Creatinine 1.1 mg/dL (0.7-1.3) Estimated GFR (Cockcroft-Gault) 66.8 Glucose Level 101 mg/dL (70-99) Calcium Level 8.5 mg/dL (8.5-10.1) Phosphorus Level 3.2 mg/dL (2.6-4.7) Magnesium Level 2.2 mg/dL (1.8-2.4) White Blood Count 5.6 x10^3/uL (4.0-11.0) Red Blood Count 5.10 x10^6/uL (4.30-5.70) Hemoglobin 14.9 g/dL (13.0-17.5) Hematocrit 44.9 % (39.0-53.0) Mean Corpuscular Volume 88 fL (79-100) Mean Corpuscular Hemoglobin 29 pg (25-35) Mean Corpuscular Hemoglobin Concent 33 g/dL (31-37) Red Cell Distribution Width 13.9 % (11.5-14.5) Platelet Count 275 x10^3/uL (140-400) Neutrophils (%) (Auto) 59 % (31-73) Lymphocytes (%) (Auto) 30 % (24-48) Monocytes (%) (Auto) 9 % (0-9) Eosinophils (%) (Auto) 2 % (0-3) Basophils (%) (Auto) 1 % (0-3) Neutrophils # (Auto) 3.3 x10^3/uL (1.8-7.7) Lymphocytes # (Auto) 1.7 x10^3/uL (1.0-4.8) Monocytes # (Auto) 0.5 x10^3/uL (0.0-1.1) Eosinophils # (Auto) 0.1 x10^3/uL (0.0-0.7) Basophils # (Auto) 0.0 x10^3/uL (0.0-0.2) Physical Exam HEENT: Neck Supple W Full Motion Chest: Symmetric LUNGS: Clear to Auscultation Heart: RRR Abdomen: Soft N/T Extremities: No Edema Neurology: alert, oriented, follow commands Assessment Assessment 1. Chest pain, mixed features.Trop peak 0.45 2. Accelerated hypertension 3. Chronic systolic CHF with cardiomyopathy; Echo shows LVEF 40% with mild to moderate global hypokinesis. 4. Hyperlipidemia; [id number] 5. Tobaccosim; reinforced smoking cessation 6. Obesity Recommendations ASA, statin Continue lisinopril Add low-dose BB for HF optimization Outpatient ischemic evaluation SS consult Patient to follow up in our office Contact information provided RHONA RAMSEY MD 03/13/20 5513: CARDIAC CONSULT ASSESSMENT/PLAN ASSESSMENT/PLAN Patient seen and examined. Agree with FUEL CONVERSION TECHNICIAN's assessment and plan. Chest pain with atypical features, reproducible to palpation and most probably musculoskeletal. Myocardial infarction has been ruled out. Blood pressure better controlled since admission. 2D echo showed LVEF 40%. Plan ischemic evaluation as an outpatient. Thank you very much Justicifation of Admission Dx: Justifications for Admission: Justification of Admission Dx: Yes Comments: Chest pain Chronic systolic CHF VIANEY GRANT APRN Mar 14, 2020 11:57
[2020-03-14] MEDS ORDERED: CARVEDILOL 6.25 MG TABLET. PO SCH (12:00)
[2020-03-14 12:05] VITALS: BP 161/90
--- NOTE | 2020-03-14 12:38 | NUR ---
SS following for discharge planning. SS reviewed pt chart and discussed with pt RN. Pt is from home and is currently on room air. PT/OT recommended home independent. Self pay. Discharge order on the chart for home with self care.
[2020-03-14] MEDS ORDERED: CARV6.25 PO (14:08)
[2020-03-14 14:19] VITALS: BP 155/78
--- NOTE | 2020-03-14 14:48 | NUR ---
Discharge Note: ZEFERINO WINCHESTER Discharge instructions and discharge home medications reviewed with Patient and a copy given. All questions have been answered and understanding verbalized. The following instructions and handouts were given: Chest pain, Carvedilol, lisinopril. Patient discharged to home with self care via private vehicle. Instructed to call if any other questions needed to be answered.
== END 2020-03-14 14:45 | disposition home or self-care (01) | DRG 313 ==
LOC: ER 05:49 → ED HOLD 07:48 → 2 NORTH 12:10
PROVIDERS: ADMIT Internal Medicine; ATTEND Internal Medicine
DX: R07.89 Other chest pain (principal); I42.9 Cardiomyopathy, unspecified; I50.22 Chronic systolic (congestive) heart failure; E66.9 Obesity, unspecified; E78.5 Hyperlipidemia, unspecified; F17.210 Nicotine dependence, cigarettes, uncomplicated; I11.0 Hypertensive heart disease with heart failure; M19.90 Unspecified osteoarthritis, unspecified site; I25.10 Atherosclerotic heart disease of native coronary artery without angina pectoris; Z68.34 Body mass index [BMI] 34.0-34.9, adult; Z83.3 Family history of diabetes mellitus; Z87.442 Personal history of urinary calculi; Z90.49 Acquired absence of other specified parts of digestive tract; Z91.19 Patient's noncompliance with other medical treatment and regimen
CPT/HCPCS: 36415; 71045; 80048; 80053; 80061; 83690; 83735; 83880; 84100; 84443; 84484; 85025; 85379; 93005; 93306; 96372; 96374; 99285; J1650; J2270; 97530-GP; 97535-GO; G0378

== ENCOUNTER → 2020-06-05 | Outpatient (CLI) | payer SELFPAY ==
[~2020-06-05] MED LIST changes: +ASPI-886 PO; +CARV6.25 PO; +LISI10TA16 PO; -MORPHINE SULFATE 4 MG/ML VIAL. IV PRN
--- NOTE | 2020-06-05 17:34 | KCIC ---
EXAM: XR ABDOMEN 1V 06/05/2020 10:34 AM CLINICAL INDICATION: Bilateral kidney calcifications, pain, hematuria COMPARISON: CT abdomen pelvis 07/20/2018 TECHNIQUE: AP supine view the abdomen FINDINGS: There are multiple left renal calculi, largest near the renal pelvis measuring 2.2 cm. Pos sible small right renal calcifications. No definite ureteral calcifications. Bowel gas pattern is non obstructive. Lung bases are clear. There is degenerative disc disease in the lumbar spine. IMPRESSION: 1. Left nephrolithiasis with a 2.2 cm calculus at the renal pelvis. 2. Possible small right renal calculi. Electronically signed by: Mala Conde MD (06/05/2020 5:32 PM) [id number]
== END ==
LOC: KCIC 10:29
PROVIDERS: ATTEND Urology
DX: N20.0 Calculus of kidney (principal)
CPT/HCPCS: 74018

== ENCOUNTER 2020-10-16 12:33 | Emergency (ER) | payer SELFPAY ==
[~2020-10-16] VITALS: Ht 182.9 cm; Wt 118.1 kg
[2020-10-16] MEDS ORDERED: MORPHINE SULFATE 4 MG/ML INJ. IV/SQ PRN (16:00)
--- NOTE | 2020-10-16 16:00 | PHYS DOC ---
Past Medical History Past Medical History: Hypertension Past Surgical History: Appendectomy, Tonsillectomy, Other Additional Past Surgical Histo: back, knee, shoulder Smoking Status: Current Every Day Smoker Alcohol Use: Occasionally Drug Use: None General Adult EDM: Chief Complaint: SHORTNESS OF BREATH HPI: HPI: Patient is a 69 year old man with history of hypertension who presents the ED today complaining of shortness of breath that has been going on for 5 to 6 months. Patient is also complaining of intermittent left-sided chest pain that usually radiates to his left shoulder for the same amount of time as well as vision changes for 5 to 6 months. Patient denies any fever. Denies any cough or congestion. Currently states he does not have any chest pain or any pain anywhere in his body. He states he has shortness of breath worse on exertion and laying on the left side. He states he was seen by his PCP for the same symptoms and was put on blood pressure medicine. He states the blood pressure medicine is not helping. He does not know the name of the medicine. Review of Systems: Review of Systems: Constitutional: Denies fever or chills. [] Eyes: Reports vision changes. Denies change in visual acuity. [] HENT: Denies nasal congestion or sore throat. [] Respiratory: Reports shortness of breath, denies cough Cardiovascular: Reports intermittent left-sided chest pain, denies any chest pain right now GI: Denies abdominal pain, nausea, vomiting, bloody stools or diarrhea. [] : Denies dysuria. [] Musculoskeletal: Denies back pain or joint pain. [] Integument: Denies rash. [] Neurologic: Denies headache, focal weakness or sensory changes. [] Psychiatric: Denies depression or anxiety. [] Heart Score: C/O Chest Pain: Yes Risk Factors: Risk Factors: DM, Current or recent (<one month) smoker, HTN, HLP, family history of CAD, obesity. Risk Scores: Score 0 - 3: 2.5% MACE over next 6 weeks - Discharge Home Score 4 - 6: 20.3% MACE over next 6 weeks - Admit for Clinical Observation Score 7 - 10: 72.7% MACE over next 6 weeks - Early Invasive Strategies Allergies: Allergies: Allergies Coded Allergies Type Severity Reaction Last Updated Verified No Known Drug Allergies 10/16/20 No Physical Exam: PE: Constitutional: Overweight patient, no acute distress, non-toxic appearance. [] HENT: Normocephalic, atraumatic, bilateral external ears normal, oropharynx moist, no oral exudates, nose normal. [] Eyes: PERRLA, EOMI, conjunctiva normal, no discharge. [] Neck: Normal range of motion, no tenderness, supple, no stridor. [] Cardiovascular:Heart rate regular rhythm, no murmur [] Lungs & Thorax: Bilateral breath sounds clear to auscultation [] Abdomen: Bowel sounds normal, soft, no tenderness, no masses, no pulsatile m asses. [] Skin: Warm, dry, no erythema, no rash. [] Back: No tenderness, no CVA tenderness. [] Extremities: No tenderness, no cyanosis, no clubbing, ROM intact, +1 bilateral pedal edema with varicose veins bilaterally to the lower extremities Neurologic: Alert and oriented X 3, normal motor function, normal sensory function, no focal deficits noted. Cranial nerves II through XII intact Psychologic: Affect normal, judgement normal, mood normal. [] EKG: EK interpreted by Dr. Johnson sinus rhythm heart rate 83 no STEMI [] Radiology/Procedures: Radiology/Procedures: []PROCEDURE: CT HEAD WO CONTRAST CT HEAD/BRAIN WO History: Vision changes, short of air. Comparison: None. Technique: Noncontrast CT imaging was performed of the head. Findings: No intracranial hemorrhage. No mass effect. No hydrocephalus. There is a small, approximately 1 cm diameter, focus of hypodensity at the subcortical-deep white matter in the left frontoparietal lobe. No evidence of territorial infarct. Imaged orbits are unremarkable. Imaged paranasal sinuses and mastoid air cells are clear. The scalp and calvarium are unremarkable. Impression: 1. Small focus of hypodensity in the left frontoparietal white matter may represent age-indeterminate lacunar infarct versus focal area of chronic microvascular ischemic change. Recommend brain MRI for further evaluation. ----- Exposure: One or more of the following individualized dose reduction techniques were utilized for this examination: 1. Automated exposure control 2. Adjustment of the mA and/or kV according to patient size 3. Use of iterative reconstruction technique. Electronically signed by: Ben Sawyer MD (10/16/2020 5:00 PM) [id number] DICTATED and SIGNED BY: BEN SAWYER MD DATE: 10/16/20 [id number] PROCEDURE: PORTABLE CHEST 1V Single view chest dated 10/16/2020 4:07 PM: COMPARISON: 03/13/2020 Clinical Indication: Shortness of breath. Findings: Single upright portable exam of the chest was performed. Heart size and mediastinal contours are within normal limits. Lungs are clear. No consolidation or pleural effusion. No pneumothorax. IMPRESSION: No acute radiographic abnormality. Electronically signed by: Romero Cisneros MD (10/16/2020 4:08 PM) [facility] DICTATED and SIGNED BY: ROMERO CISNEROS MD DATE: 10/16/20 [id number] Course & Med Decision Making: Course & Med Decision Making Pertinent Labs and Imaging studies reviewed. (See chart for details) This is a 69-year-old male patient presented to the ED today complaining of shortness of breath worse on exertion, intermittent chest pain and vision changes, symptoms have been going on for 5 to 6 months. Patient has no chest pain in the ED. EKG is negative. Chest x-ray is negative for any acute findings, CT of the head noted for an age-indeterminate lacunar infarct, patient will follow up with the PCP for an outpatient MRI CBC CMP troponin are normal. O2 sats have been above 96% on room air, temperature 98.6, heart rate 80, respiration 20 on room air. Blood pressure was 200/98 on arrival to the ED, he states he was started on a new blood pressure medicine recently, patient does not remember the name of the medicine. Blood pressure is coming down on its own, currently 170/76 Patient is in no distress, I recommended he follows up with his own PCP. I also provided him an horse racing manager to follow-up for his chronic vision issues that he has had for 5 to 6 months Nuvia Disclaimer: Nuvia Disclaimer: This electronic medical record was generated, in whole or in part, using a voice recognition dictation system. Departure Departure Impression: Primary Impression: Shortness of breath Additional Impression: Hypertension Qualified Codes: I10 - Essential (primary) hypertension Disposition: HOME / SELF CARE / HOMELESS Condition: STABLE Referrals: LILIANA BALLARD MD (PCP) Follow-up in the course of this week PEDRO ANTHONY MD follow up in one week Patient Instructions: Hypertension, Shortness of Breath, Itvs-nd-Qhcc Additional Instructions: You were evaluated in the emergency room for shortness of breath. Your work-up was negative for any acute findings. Please follow-up with your primary care doctor, your blood pressure still running high. Please follow-up with the provided horse racing manager for your eyes. ARLYN TAYLOR APRN Oct 16, 2020 16:00
--- NOTE | 2020-10-16 16:10 | RAD ---
Single view chest dated 10/16/2020 4:07 PM: COMPARISON: 03/13/2020 Clinical Indication: Shortness of breath. Findings: Single upright portable exam of the chest was performed. Heart size and mediastinal contours are with in normal limits. Lungs are clear. No consolidation or pleural effusion. No pneumothorax. IMPRESSION: No acute radiographic abnormality. Electronically signed by: Romero Cisneros MD (10/16/2020 4:08 PM) SARMAD
[2020-10-16 16:34] LABS: BASO # 0.1 x10^3/uL (0.0-0.2); BASO % 1 % (0-3); EOS # 0.1 x10^3/uL (0.0-0.7); EOS % 1 % (0-3); HEMATOCRIT 44.2 % (39.0-53.0); HEMOGLOBIN 15.4 g/dL (13.0-17.5); LYMPH # 2.1 x10^3/uL (1.0-4.8); LYMPH % 25 % (24-48); MEAN CORPUSCULAR HEMOGLOBIN 30 pg (25-35); MEAN CORPUSCULAR HGB CONC 35 g/dL (31-37); MEAN CORPUSCULAR VOLUME 87 fL (79-100); MONO # 0.8 x10^3/uL (0.0-1.1); MONO % 10 % (0-9); NEUT # 5.2 x10^3/uL (1.8-7.7); NEUT % 63 % (31-73); PLATELET COUNT 267 x10^3/uL (140-400); RED BLOOD COUNT 5.06 x10^6/uL (4.30-5.70); RED CELL DISTRIBUTION WIDTH 14.1 % (11.5-14.5); WHITE BLOOD COUNT 8.2 x10^3/uL (4.0-11.0)
[2020-10-16 16:36] LABS: BILIRUBIN,URINE NEGATIVE (NEG); CLARITY,URINE CLEAR; COLOR,URINE YELLOW; NITRITE,URINE NEGATIVE (NEG); PH,URINE 5.5 (<5.0-8.0); PROTEIN,URINE NEGATIVE (NEG-TRACE); UROBILINOGEN,URINE 0.2 mg/dL (0.2 mg/dL)
[2020-10-16 16:43] LABS: BARBITURATES NEG (NEG); BENZODIAZEPINES NEG (NEG); CANNABINOIDS NEG (NEG); COCAINE NEG (NEG); METHADONE NEG (NEG); OPIATES NEG (NEG); PHENCYCLIDINE NEG (NEG)
[2020-10-16 16:45] LABS: AMPHETAMINE/METHAMPHETAMINE NEG (NEG)
[2020-10-16 16:46] LABS: BACTERIA,URINE 0 /HPF (0-FEW); RBC,URINE OCC /HPF (0-2); WBC,URINE OCC /HPF (0-4)
[2020-10-16 16:57] LABS: CALCIUM 8.6 mg/dL (8.5-10.1); CREATININE 1.1 mg/dL (0.7-1.3); GFR 66.8; POTASSIUM 3.7 mmol/L (3.5-5.1)
[2020-10-16 17:02] LABS: ALBUMIN 3.9 g/dL (3.4-5.0); ALBUMIN/GLOBULIN RATIO 1.1 (1.0-1.7); TOTAL BILIRUBIN 0.4 mg/dL (0.2-1.0); TOTAL PROTEIN 7.4 g/dL (6.4-8.2)
--- NOTE | 2020-10-16 17:03 | RAD ---
CT HEAD/BRAIN WO History: Vision changes, short of air. Comparison: None. Technique: Noncontrast CT imaging was performed of the head. Findings: No intracranial hemorrhage. No mass effect. No hydrocephalus. There is a small, approximately 1 cm d iameter, focus of hypodensity at the subcortical-deep white matter in the left frontoparietal lobe. N o evidence of territorial infarct. Imaged orbits are unremarkable. Imaged paranasal sinuses and mastoid air cells are clear. The scalp a nd calvarium are unremarkable. Impression: 1. Small focus of hypodensity in the left frontoparietal white matter may represent age-indeterminat e lacunar infarct versus focal area of chronic microvascular ischemic change. Recommend brain MRI for further evaluation. ----- Exposure: One or more of the following individualized dose reduction techniques were utilized for thi s examination: 1. Automated exposure control 2. Adjustment of the mA and/or kV according to patient size 3. Use of iterative reconstruction technique. Electronically signed by: Ben Ramos MD (10/16/2020 5:00 PM) [id number]
[2020-10-16 18:00] VITALS: BP 184/98
--- NOTE | 2020-10-16 18:35 | EKG ---
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
--- NOTE | 2020-10-16 18:36 | EKG ---
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
--- NOTE | 2020-10-17 17:12 | NUR ---
IP: Informed pt of negative covid test. Pt verbalized understanding.
== END 2020-10-16 18:21 | disposition home or self-care (01) ==
LOC: ER 12:33
DX: R06.02 Shortness of breath (principal); Z20.822 Contact with and (suspected) exposure to COVID-19; I10 Essential (primary) hypertension; R07.89 Other chest pain; F17.200 Nicotine dependence, unspecified, uncomplicated
CPT/HCPCS: 36415; 70450; 71045; 80053; 80307; 81001; 83605; 83735; 83880; 84145; 84443; 84484; 85025; 87040; 87426; 93005; 99285; U0003; U0005